=== PATIENT | male | born 1950 | race Caucasian/White ===

== ENCOUNTER 2016-03-29 12:04 | Emergency (ER) | payer MEDICARE ==
[2016-03-29 12:37] LABS: ABSOLUTE NEUTROPHIL COUNT 3.6 K/mm3 (1.8-7.7); BASO # 0.1 K/mm3 (0.0-0.2); BASO % 1.2 % (0.2-1.0); EOS # 0.6 (0.0-0.5); HEMATOCRIT 42.6 % (32.0-52.0); IMM NEUT% 0.6 % (0-1); LYMPH # 1.5 (1.0-4.8); LYMPH % 22.7 % (15-45); MEAN CELL VOLUME 90.3 fl (80.0-94.0); MEAN CORPUSCULAR HEMOGLOBIN 29.7 pg (27.0-31.0); MEAN CORPUSCULAR HGB CONC 32.9 g/dl (33.0-37.0); MEAN PLATELET VOLUME 9.5 fl (7.4-10.4); MONO # 0.7 (0.0-0.8); MONO % 10.4 % (4-12); NEUT % 56.1 % (43-75); PLATELET COUNT 309 K/mm3 (130-400); RED CELL DISTRIBUTION WIDTH 14.2 % (11.5-14.5)
[2016-03-29 12:54] LABS: ALB/GLOB RATIO 1.7 (>1.0); ALBUMIN 4.5 gm/dL (3.5-5.7); CALCIUM 9.8 mg/dL (8.6-10.3)
--- NOTE | 2016-03-29 13:05 | CT ---
HEAD W/O CON: 03/29/2016 12:31 PM CLINICAL HISTORY: Patient fell and hit for head on 03/25/2016. Today, patient has had memory loss.. Initial encounter COMPARISON: None. TECHNIQUE: Contiguous axial 5 mm images from skull base to the vertex were obtained without IV contrast. Sagittal and coronal reformations with bone algorithm images were also obtained at this time. CT DI:: 51.7 DLP: 1016.5 FINDINGS: Infarct: None Extra axial spaces: Normal in size and morphology for the patient's age. Hemorrhage: None. Ventricular system: Normal in size and morphology for the patient's age. Basal cisterns: Normal. Cerebral parenchyma: Mild atrophy is present. There may be some minimal small vessel occlusive change within the periventricular white matter and centrum semiovale.. Midline shift: None. Cerebellum: Normal. Brainstem: Normal. OTHER: Calvarium: Normal. Vascular system: Normal. Visualized Paranasal sinuses and Mastoid air cells: Clear. Visualized Orbits and regional soft tissues: Normal. IMPRESSION: Atrophy with small vessel occlusive change. No acute intracranial process. Report was uploaded to the electronic medical record at approximately 1301 hours on 03/29/2016.
== END 2016-03-29 13:19 | disposition home or self-care (01) ==
LOC: ED 12:04
DX: F07.81 Postconcussional syndrome (principal); G44.309 Post-traumatic headache, unspecified, not intractable; E11.9 Type 2 diabetes mellitus without complications; I10 Essential (primary) hypertension